=== PATIENT | male | born 1980 | race Two or more races ===

== ENCOUNTER 2017-02-21 08:12 | Inpatient (IN) | payer OTHER ==
[~2017-02-21] VITALS: Ht 170.2 cm; Wt 99.4 kg
[2017-02-21] MEDS ORDERED: SODIUM CHLORIDE 0.9% 1,000 ML IV ONE ×2 (09:09→14:00)
[2017-02-21] MEDS ORDERED: NALBUPHINE HCL 10 MG/1ml INJECTION IV ONE (09:15)
[2017-02-21] MEDS ORDERED: ONDANSETRON HCL 4 MG/2 ML VIAL IV ONE ×2 (09:15→11:15)
[2017-02-21 09:43] LABS: Potassium 4.3 mmol/L (3.5-5.1)
[2017-02-21 10:33] LABS: Basophils # (auto) 0.1 uL; Basophils % (auto) 0.5 % (0.0-2.0); Eosinophils # (auto) 0.4 uL; Eosinophils % (auto) 2.7 % (0.0-7.0); Hematocrit 41.9 % (41.0-53.0); Hemoglobin 14.9 g/dL (13.5-17.5); Lymphocytes # (auto) 3.5 uL; Lymphocytes % (auto) 21.4 % (10.0-50.0); Mean Corpuscular Hemoglobin 31.5 pg (28.0-32.0); Mean Corpuscular Volume 88.3 fL (80.0-100.0); Mean Platelet Volume 11.1 fL (7.4-10.4); Monocytes # (auto) 0.5 uL; Monocytes % (auto) 2.8 % (0.0-12.0); Neutrophils # (auto) 11.8 uL; Neutrophils % (auto) 72.6 % (37.0-80.0); Platelet Count (auto) 315 10^3/uL (140-450); Red Cell Distribution Width 13.3 % (11.6-16.0); White Blood Cell 16.3 10^3/uL (4.4-10.8)
[2017-02-21 10:40] LABS: Mean Corpuscular Hgb Conc. 35.7 g/dL (32.0-36.0)
[2017-02-21 10:49] LABS: Albumin 3.2 g/dL (3.4-5.0); Total Protein 8.5 g/dL (6.4-8.2)
[2017-02-21 10:50] LABS: BUN/Creatinine Ratio 12.2; Bilirubin, Total 1.9 mg/dL (0.2-1.0)
[2017-02-21 11:02] LABS: Calcium 5.1 mg/dL (8.5-10.1)
[2017-02-21] MEDS ORDERED: MORPHINE SULFATE 4 MG/ML SYRG IV ONE (11:15)
[2017-02-21] MEDS ORDERED: IOHEXOL 300 MG/ML 100ML BOTTLE IJ ONE (11:16)
[2017-02-21] MEDS ORDERED: PIPERACILLIN-TAZOB 3.375GM 100 ML IV ONE (11:30)
[2017-02-21 12:48] LABS: Lactic Acid w/Reflex 2.7 mmol/L (0.4-2.0)
[2017-02-21 12:49] LABS: REFLEX LACTIC ACID YES OR NO YES
[2017-02-21] MEDS ORDERED: NITROGLYCERIN 0.4 MG SL TAB SL PRN (14:00)
[2017-02-21] MEDS ORDERED: DEXTROSE (50%) 50ML SYRG IV PRN (14:00)
[2017-02-21] MEDS ORDERED: HYDROmorphone HCL 2 MG/ML VL IV ONE (14:00)
[2017-02-21] MEDS ORDERED: MORPHINE SULF INJ 2 MG/ML SYRINGE 1ML IV PRN (14:00)
[2017-02-21] MEDS ORDERED: CALCIUM GLUC 4.65 MEQ/10ML 4.65 MEQ in SODIUM CHL 0.9% 50 ML IV ONE (14:30)
[2017-02-21] MEDS: PANTOPRAZOLE SODIUM 40 MG/10 ML VIAL IV SCH (14:31)
[2017-02-21 15:31] VITALS: BP 134/79
[2017-02-21 15:34] VITALS: BP 122/72
[2017-02-21] MEDS: ONDANSETRON HCL 4 MG/2 ML VIAL IV PRN ×2 (16:06→21:34)
[2017-02-21] MEDS: HYDROmorphone HCL 2 MG/ML VL IV PRN ×2 (16:16→21:34)
[2017-02-21] MEDS: LEVOFLOXACIN 500MG 100 ML IV SCH (16:36)
[2017-02-21] MEDS: SODIUM CHLORIDE 0.9% 1,000 ML IV SCH ×2 (16:40→21:34)
[2017-02-21] MEDS: InsuLIN REG 1unit/0.01ml Soln (100units/ml) SC SCH ×3 (18:00→23:32)
[2017-02-21] MEDS: ACCU-CHEK COMFORT CURVE STRIP VI SCH ×2 (18:00→23:31)
[2017-02-21] MEDS: metroNIDAZOLE 500MG/100ML 100 ML IV SCH ×2 (18:17→21:34)
[2017-02-21 22:02] VITALS: BP 133/75
[2017-02-22] MEDS: SODIUM CHLORIDE 0.9% 1,000 ML IV SCH ×5 (01:36→21:23)
[2017-02-22] MEDS: HYDROmorphone HCL 2 MG/ML VL IV PRN ×5 (01:37→21:23)
[2017-02-22 05:00] VITALS: BP 127/78
[2017-02-22] MEDS: ONDANSETRON HCL 4 MG/2 ML VIAL IV PRN (05:34)
[2017-02-22 05:52] LABS: Hemoglobin 15.6 g/dL (13.5-17.5); Mean Corpuscular Hemoglobin 31.3 pg (28.0-32.0); Mean Corpuscular Hgb Conc. 34.8 g/dL (32.0-36.0); Mean Corpuscular Volume 90.2 fL (80.0-100.0); Mean Platelet Volume 9.6 fL (7.4-10.4); Platelet Count (auto) 339 10^3/uL (140-450); Red Cell Distribution Width 14.3 % (11.6-16.0); White Blood Cell 22.3 10^3/uL (4.4-10.8)
[2017-02-22] MEDS: InsuLIN REG 1unit/0.01ml Soln (100units/ml) SC SCH ×4 (06:00→23:52)
[2017-02-22 06:05] LABS: Metamyelocytes % 0; Myelocytes % 0; Promyelocytes % 0; Reactive Lymphocytes 0
[2017-02-22] MEDS: metroNIDAZOLE 500MG/100ML 100 ML IV SCH ×3 (06:22→23:33)
[2017-02-22] MEDS: ACCU-CHEK COMFORT CURVE STRIP VI SCH ×4 (06:23→23:52)
[2017-02-22 08:18] LABS: Blood Urea Nitrogen 12 mg/dL (7-18); Cholesterol 403 mg/dL (<200); Total Protein 8.1 g/dL (6.4-8.2)
[2017-02-22 08:26] VITALS: BP 140/88
[2017-02-22 08:52] LABS: Sodium 133 mmol/L (136-145)
[2017-02-22 08:53] LABS: Anion Gap 15 (5-15); BUN/Creatinine Ratio 13.5; Carbon Dioxide 20 mmol/L (21-32); Chloride 98 mmol/L (98-107); GFR African American 124 mL/min; GFR Non-African American 103 mL/min; Glucose 330 mg/dL (74-106)
[2017-02-22 08:54] LABS: Alkaline Phosphatase 59 U/L (45-117); Calcium 6.6 mg/dL (8.5-10.1); Triglycerides 637 mg/dL (<150)
[2017-02-22 08:55] LABS: Amylase 308 U/L (25-115); HDL Cholesterol 31 mg/dL (40-59)
[2017-02-22 08:59] LABS: Potassium 6.1 mmol/L (3.5-5.1)
[2017-02-22] MEDS: PANTOPRAZOLE SODIUM 40 MG/10 ML VIAL IV SCH (09:07)
[2017-02-22] MEDS: LEVOFLOXACIN 500MG 100 ML IV SCH (09:07)
[2017-02-22] MEDS ORDERED: CALCIUM GLUC 4.65 MEQ/10ML 4.65 MEQ in SODIUM CHL 0.9% 50 ML IV ONE (10:30)
[2017-02-22] MEDS ORDERED: PROMETHAZINE HCL 25 MG/ML 1ML IV PRN (10:30)
[2017-02-22 11:34] LABS: Platelet Estimate Adequate
[2017-02-22 11:54] LABS: Aspartate Aminotransferase 93 U/L (15-37)
[2017-02-22 12:03] VITALS: BP 139/89
[2017-02-22] MEDS: PROCHLORPERAZINE EDISYLATE 5 MG/ML 2ML VIAL IV PRN (14:04)
[2017-02-22 14:32] LABS: Urine RBC None Seen /hpf (0 - 3)
[2017-02-22 14:44] LABS: Urine Bilirubin Negative (Negative); Urine Blood TRACE /uL (Negative); Urine Color Yellow (Yellow); Urine Nitrite Negative (Negative); Urine Squamous Epithelial Cell FEW /hpf (<5); Urine Urobilinogen Normal (Negative); Urine pH 5.5 (5.0-8.0)
[2017-02-22 14:47] LABS: Urine Glucose 4+ mg/dL (Normal); Urine Ketone 2+ (Negative)
[2017-02-22 16:04] VITALS: BP 147/79
[2017-02-22] MEDS ORDERED: HYDROmorphone HCL 2 MG/ML VL IV ONE (17:00)
[2017-02-22] MEDS ORDERED: SODIUM CHLORIDE 0.9% 1,000 ML IV ONE (17:00)
[2017-02-22] MEDS: INSULIN DETEMIR(LEVEMIR) 1unit/0.01ml Soln (100units/ml) SC SCH (21:39)
[2017-02-22 22:00] VITALS: BP 146/82
[2017-02-23] MEDS: HYDROmorphone HCL 2 MG/ML VL IV PRN ×6 (01:35→21:44)
[2017-02-23] MEDS ORDERED: METF-312 PO (01:47)
[2017-02-23] MEDS ORDERED: CANA100T OR (01:51)
[2017-02-23] MEDS ORDERED: LISI40TA PO (01:51)
[2017-02-23] MEDS ORDERED: VERA180C2 PO (01:51)
[2017-02-23] MEDS ORDERED: IBUP800T24 PO (01:52)
[2017-02-23] MEDS: SODIUM CHLORIDE 0.9% 1,000 ML IV SCH ×5 (04:48→20:17)
[2017-02-23 05:00] VITALS: BP 139/90
[2017-02-23 05:13] LABS: DEFINITIVE VIEW TRANSMISSION; Hematocrit 40.6 % (41.0-53.0); Hemoglobin 13.9 g/dL (13.5-17.5); Mean Corpuscular Hgb Conc. 34.2 g/dL (32.0-36.0); Mean Corpuscular Volume 90.6 fL (80.0-100.0); Mean Platelet Volume 9.4 fL (7.4-10.4); Platelet Count (auto) 271 10^3/uL (140-450); Red Cell Distribution Width 14.4 % (11.6-16.0); SUSPECT VIEW TRANSMISSION; White Blood Cell 17.8 10^3/uL (4.4-10.8)
[2017-02-23 05:14] LABS: Metamyelocytes % 0; Myelocytes % 0; Promyelocytes % 0; Reactive Lymphocytes 0
[2017-02-23 05:34] LABS: Albumin 2.5 g/dL (3.4-5.0); BUN/Creatinine Ratio 17.1; Bilirubin, Total 1.1 mg/dL (0.2-1.0); Calcium 7.5 mg/dL (8.5-10.1); Potassium 4.6 mmol/L (3.5-5.1); Total Protein 7.2 g/dL (6.4-8.2)
[2017-02-23] MEDS: InsuLIN REG 1unit/0.01ml Soln (100units/ml) SC SCH ×4 (05:46→23:37)
[2017-02-23] MEDS: metroNIDAZOLE 500MG/100ML 100 ML IV SCH ×3 (05:46→22:31)
[2017-02-23] MEDS: ACCU-CHEK COMFORT CURVE STRIP VI SCH ×4 (05:47→23:37)
[2017-02-23 07:42] LABS: Platelet Estimate Adequate
[2017-02-23 09:00] VITALS: BP 117/77
[2017-02-23] MEDS: LEVOFLOXACIN 500MG 100 ML IV SCH (09:31)
[2017-02-23] MEDS: PANTOPRAZOLE SODIUM 40 MG/10 ML VIAL IV SCH (09:31)
[2017-02-23] MEDS: INSULIN DETEMIR(LEVEMIR) 1unit/0.01ml Soln (100units/ml) SC SCH ×2 (09:37→21:45)
[2017-02-23] MEDS: PROCHLORPERAZINE EDISYLATE 5 MG/ML 2ML VIAL IV PRN ×2 (09:43→18:20)
[2017-02-23] MEDS ORDERED: SODIUM CHLORIDE 0.9% 500 ML IV ONE (10:15)
[2017-02-23 13:00] VITALS: BP 146/86
[2017-02-23 17:00] VITALS: BP_SYST 148; BP_SYST 94; BP_DIAS 57; BP_DIAS 91
[2017-02-23 22:00] VITALS: BP 163/91
[2017-02-24] MEDS: HYDROmorphone HCL 2 MG/ML VL IV PRN ×5 (04:20→23:54)
[2017-02-24] MEDS: SODIUM CHLORIDE 0.9% 1,000 ML IV SCH ×5 (04:21→23:36)
[2017-02-24] MEDS: ACETAMINOPHEN 325 MG TAB PO PRN ×2 (04:28→23:55)
[2017-02-24 05:30] VITALS: BP 160/94
[2017-02-24 05:42] LABS: Basophils # (auto) 0 uL; Eosinophils # (auto) 0.1 uL; Eosinophils % (auto) 0.7 % (0.0-7.0); Hematocrit 35.4 % (41.0-53.0); Hemoglobin 11.8 g/dL (13.5-17.5); Lymphocytes % (auto) 13.9 % (10.0-50.0); Mean Corpuscular Hemoglobin 30.4 pg (28.0-32.0); Mean Corpuscular Hgb Conc. 33.4 g/dL (32.0-36.0); Mean Corpuscular Volume 90.8 fL (80.0-100.0); Mean Platelet Volume 8.9 fL (7.4-10.4); Monocytes # (auto) 1.2 uL; Monocytes % (auto) 8.4 % (0.0-12.0); Platelet Count (auto) 235 10^3/uL (140-450); Red Cell Distribution Width 14.3 % (11.6-16.0); White Blood Cell 14.3 10^3/uL (4.4-10.8)
[2017-02-24] MEDS: InsuLIN REG 1unit/0.01ml Soln (100units/ml) SC SCH ×3 (05:56→18:12)
[2017-02-24] MEDS: ACCU-CHEK COMFORT CURVE STRIP VI SCH ×3 (05:56→18:11)
[2017-02-24] MEDS: metroNIDAZOLE 500MG/100ML 100 ML IV SCH ×3 (05:56→23:36)
[2017-02-24 06:05] LABS: Albumin 2.2 g/dL (3.4-5.0); BUN/Creatinine Ratio 22.4; Bilirubin, Total 0.8 mg/dL (0.2-1.0); Calcium 7.7 mg/dL (8.5-10.1); Potassium 3.4 mmol/L (3.5-5.1); Total Protein 6.5 g/dL (6.4-8.2)
[2017-02-24 09:00] VITALS: BP 128/84
[2017-02-24] MEDS: cefTRIAXone 1GM/50ML D5W 50 ML IV SCH (10:37)
[2017-02-24] MEDS: PANTOPRAZOLE SODIUM 40 MG/10 ML VIAL IV SCH (10:38)
[2017-02-24] MEDS: INSULIN DETEMIR(LEVEMIR) 1unit/0.01ml Soln (100units/ml) SC SCH ×2 (10:55→22:09)
[2017-02-24 13:24] VITALS: BP 153/94
[2017-02-24 17:06] VITALS: BP 163/101
[2017-02-24 21:38] VITALS: BP 141/81
[2017-02-25] MEDS: ACCU-CHEK COMFORT CURVE STRIP VI SCH ×4 (00:15→17:26)
[2017-02-25] MEDS: InsuLIN REG 1unit/0.01ml Soln (100units/ml) SC SCH ×4 (00:16→17:27)
[2017-02-25] MEDS: HYDROmorphone HCL 2 MG/ML VL IV PRN ×5 (04:28→20:02)
[2017-02-25 04:37] VITALS: BP 150/86
[2017-02-25 05:20] LABS: Basophils # (auto) 0 uL; Basophils % (auto) 0.2 % (0.0-2.0); Eosinophils # (auto) 0.2 uL; Eosinophils % (auto) 1.4 % (0.0-7.0); Hematocrit 33.3 % (41.0-53.0); Hemoglobin 11.1 g/dL (13.5-17.5); Lymphocytes # (auto) 2.5 uL; Lymphocytes % (auto) 16.7 % (10.0-50.0); Mean Corpuscular Hemoglobin 30.6 pg (28.0-32.0); Mean Corpuscular Hgb Conc. 33.4 g/dL (32.0-36.0); Mean Corpuscular Volume 91.7 fL (80.0-100.0); Mean Platelet Volume 8.5 fL (7.4-10.4); Monocytes # (auto) 0.9 uL; Monocytes % (auto) 6.1 % (0.0-12.0); Neutrophils # (auto) 11.3 uL; Neutrophils % (auto) 75.6 % (37.0-80.0); Platelet Count (auto) 275 10^3/uL (140-450); Red Cell Distribution Width 14.5 % (11.6-16.0); White Blood Cell 14.9 10^3/uL (4.4-10.8)
[2017-02-25] MEDS: SODIUM CHLORIDE 0.9% 1,000 ML IV SCH ×2 (05:40→08:22)
[2017-02-25] MEDS: metroNIDAZOLE 500MG/100ML 100 ML IV SCH ×3 (05:40→23:00)
[2017-02-25 05:47] LABS: BUN/Creatinine Ratio 15.9; Calcium 7.6 mg/dL (8.5-10.1)
[2017-02-25 06:05] LABS: Potassium 2.9 mmol/L (3.5-5.1)
[2017-02-25 07:33] VITALS: BP 149/95
[2017-02-25] MEDS: cefTRIAXone 1GM/50ML D5W 50 ML IV SCH ×2 (09:45→10:15)
[2017-02-25] MEDS ORDERED: POTASSIUM CHL 20MEQ/100ML 100 ML IV ONE ×2 (09:45→11:45)
[2017-02-25] MEDS: PANTOPRAZOLE SODIUM 40 MG/10 ML VIAL IV SCH (10:15)
[2017-02-25] MEDS: INSULIN DETEMIR(LEVEMIR) 1unit/0.01ml Soln (100units/ml) SC SCH ×2 (10:55→22:39)
[2017-02-25] MEDS: SOD CHL 0.9%/ KCL 40MEQ 1,000 ML IV SCH (10:56)
[2017-02-25] MEDS: ACETAMINOPHEN 325 MG TAB PO PRN ×2 (11:04→12:31)
[2017-02-25 13:00] VITALS: BP 129/65
[2017-02-25] MEDS ORDERED: POTASSIUM CHL 20 Meq TABLET PO ONE (13:00)
[2017-02-25 16:48] VITALS: BP 158/93
[2017-02-25 21:45] VITALS: BP 152/90
[2017-02-26] MEDS: SOD CHL 0.9%/ KCL 40MEQ 1,000 ML IV SCH (01:23)
[2017-02-26] MEDS ORDERED: LORazepam 0.5 MG TAB PO PRN (03:00)
[2017-02-26] MEDS: HYDROmorphone HCL 2 MG/ML VL IV PRN ×4 (03:15→20:06)
[2017-02-26 05:00] VITALS: BP 149/89
[2017-02-26 05:48] LABS: Basophils # (auto) 0.1 uL; Basophils % (auto) 0.3 % (0.0-2.0); Eosinophils # (auto) 0.5 uL; Eosinophils % (auto) 3.5 % (0.0-7.0); Hematocrit 33.5 % (41.0-53.0); Hemoglobin 11.2 g/dL (13.5-17.5); Lymphocytes # (auto) 2.3 uL; Lymphocytes % (auto) 15.1 % (10.0-50.0); Mean Corpuscular Hemoglobin 30.3 pg (28.0-32.0); Mean Corpuscular Hgb Conc. 33.5 g/dL (32.0-36.0); Mean Corpuscular Volume 90.5 fL (80.0-100.0); Mean Platelet Volume 8.4 fL (7.4-10.4); Monocytes # (auto) 1.1 uL; Monocytes % (auto) 7.4 % (0.0-12.0); Neutrophils # (auto) 11.4 uL; Neutrophils % (auto) 73.7 % (37.0-80.0); Platelet Count (auto) 297 10^3/uL (140-450); Red Cell Distribution Width 14.6 % (11.6-16.0); White Blood Cell 15.5 10^3/uL (4.4-10.8)
[2017-02-26] MEDS: metroNIDAZOLE 500MG/100ML 100 ML IV SCH ×3 (05:49→21:40)
[2017-02-26] MEDS: ACCU-CHEK COMFORT CURVE STRIP VI SCH ×5 (06:00→23:28)
[2017-02-26] MEDS: InsuLIN REG 1unit/0.01ml Soln (100units/ml) SC SCH ×5 (06:00→23:34)
[2017-02-26 06:29] LABS: Albumin 2.1 g/dL (3.4-5.0); BUN/Creatinine Ratio 16.3; Bilirubin, Total 0.5 mg/dL (0.2-1.0); Calcium 7.8 mg/dL (8.5-10.1); Total Protein 6.1 g/dL (6.4-8.2)
[2017-02-26 06:35] LABS: Potassium 2.8 mmol/L (3.5-5.1)
[2017-02-26] MEDS: HYDROcodone-ACET 10/325MG TAB PO PRN ×3 (06:54→22:36)
[2017-02-26 09:00] VITALS: BP 147/104
[2017-02-26] MEDS ORDERED: POTASSIUM CHLORIDE 40 MEQ, LIDOCAINE 1% (LOCAL ANESTH.) 4 ML in SODIUM CHL 0.9% 250 ML IV ONE (09:00)
[2017-02-26] MEDS: INSULIN DETEMIR(LEVEMIR) 1unit/0.01ml Soln (100units/ml) SC SCH ×2 (09:26→21:39)
[2017-02-26] MEDS: PANTOPRAZOLE SODIUM 40 MG/10 ML VIAL IV SCH (09:27)
[2017-02-26 13:00] VITALS: BP 142/94
[2017-02-26] MEDS ORDERED: diphenhdrAMINE HCL 25 MG CAP PO ONE (14:30)
[2017-02-26] MEDS ORDERED: PPN PER PHARMACY 0 ML IV SCH (15:30)
[2017-02-26 15:59] LABS: Magnesium 2.2 mg/dL (1.6-2.6)
[2017-02-26 17:00] VITALS: BP 158/98
[2017-02-26] MEDS ORDERED: DEXTROSE (50%) 50ML SYRG IV SCH (18:00)
[2017-02-26] MEDS ORDERED: POTASSIUM PHOSPHATE 44 MEQ in NS 0.9% 250 ML IV ONE (18:30)
[2017-02-26 20:00] VITALS: BP 156/101
[2017-02-26] MEDS: AMINO ACID INFUSION IN D10W 1,000 ML IV NR (20:05)
[2017-02-26 21:30] VITALS: BP 156/101
[2017-02-27 00:40] VITALS: BP 143/103
[2017-02-27] MEDS: HYDROmorphone HCL 2 MG/ML VL IV PRN ×5 (00:47→20:18)
[2017-02-27] MEDS: SOD CHL 0.9%/ KCL 40MEQ 1,000 ML IV SCH ×2 (00:48→21:13)
[2017-02-27 05:00] VITALS: BP 146/80
[2017-02-27] MEDS: metroNIDAZOLE 500MG/100ML 100 ML IV SCH ×3 (05:42→21:13)
[2017-02-27] MEDS: InsuLIN REG 1unit/0.01ml Soln (100units/ml) SC SCH ×4 (06:11→23:39)
[2017-02-27] MEDS: ACCU-CHEK COMFORT CURVE STRIP VI SCH ×4 (06:11→23:38)
[2017-02-27 06:29] LABS: Basophils # (auto) 0.1 uL; Basophils % (auto) 0.6 % (0.0-2.0); Eosinophils # (auto) 0.6 uL; Eosinophils % (auto) 3.6 % (0.0-7.0); Hematocrit 34.5 % (41.0-53.0); Hemoglobin 11.3 g/dL (13.5-17.5); Lymphocytes # (auto) 1.9 uL; Lymphocytes % (auto) 12.5 % (10.0-50.0); Mean Corpuscular Hgb Conc. 32.7 g/dL (32.0-36.0); Mean Corpuscular Volume 91.7 fL (80.0-100.0); Mean Platelet Volume 8.5 fL (7.4-10.4); Monocytes # (auto) 1.4 uL; Neutrophils # (auto) 11.6 uL; Neutrophils % (auto) 74.3 % (37.0-80.0); Platelet Count (auto) 340 10^3/uL (140-450); Red Cell Distribution Width 14.6 % (11.6-16.0); White Blood Cell 15.6 10^3/uL (4.4-10.8)
[2017-02-27 07:10] LABS: BUN/Creatinine Ratio 14.3; Bilirubin, Total 0.6 mg/dL (0.2-1.0); Calcium 7.6 mg/dL (8.5-10.1); Magnesium 1.8 mg/dL (1.6-2.6); Phosphorus 2.5 mg/dL (2.5-4.90); Potassium 3.3 mmol/L (3.5-5.1)
[2017-02-27 09:00] VITALS: BP 152/99
[2017-02-27] MEDS ORDERED: POTASSIUM CHL 20 Meq TABLET PO ONE (10:15)
[2017-02-27] MEDS ORDERED: IOHEXOL 300 MG/ML 100ML BOTTLE IJ ONE (10:52)
[2017-02-27] MEDS: PANTOPRAZOLE SODIUM 40 MG/10 ML VIAL IV SCH (11:03)
[2017-02-27] MEDS: cefTRIAXone 1GM/50ML D5W 50 ML IV SCH (11:03)
[2017-02-27] MEDS: POTASSIUM CHL 20MEQ/100ML 100 ML IV SCH ×2 (11:04→16:21)
[2017-02-27 13:00] VITALS: BP 150/105
[2017-02-27] MEDS: INSULIN DETEMIR(LEVEMIR) 1unit/0.01ml Soln (100units/ml) SC SCH ×2 (15:50→21:25)
[2017-02-27 17:00] VITALS: BP 139/82
[2017-02-27] MEDS ORDERED: CLINIMIX PER PHARMACY IV NR ×9 (20:00)
[2017-02-27] MEDS: AMINO ACID INFUSION IN D10W 1,000 ML IV NR (20:08)
[2017-02-27 22:00] VITALS: BP 145/92
[2017-02-28] MEDS: HYDROmorphone HCL 2 MG/ML VL IV PRN ×3 (00:32→09:37)
[2017-02-28 05:00] VITALS: BP 155/97
[2017-02-28] MEDS: metroNIDAZOLE 500MG/100ML 100 ML IV SCH ×3 (05:30→22:02)
[2017-02-28] MEDS: ACCU-CHEK COMFORT CURVE STRIP VI SCH ×3 (05:31→18:13)
[2017-02-28] MEDS: InsuLIN REG 1unit/0.01ml Soln (100units/ml) SC SCH ×3 (06:17→18:00)
[2017-02-28 06:19] LABS: Basophils # (auto) 0 uL; Basophils % (auto) 0.1 % (0.0-2.0); DEFINITIVE VIEW TRANSMISSION; Eosinophils # (auto) 0.6 uL; Eosinophils % (auto) 3.5 % (0.0-7.0); Hematocrit 34.8 % (41.0-53.0); Hemoglobin 11.7 g/dL (13.5-17.5); Lymphocytes # (auto) 2.2 uL; Lymphocytes % (auto) 13.6 % (10.0-50.0); Mean Corpuscular Hemoglobin 30.2 pg (28.0-32.0); Mean Corpuscular Hgb Conc. 33.6 g/dL (32.0-36.0); Mean Platelet Volume 8.2 fL (7.4-10.4); Monocytes # (auto) 1.8 uL; Monocytes % (auto) 11.2 % (0.0-12.0); Neutrophils # (auto) 11.5 uL; Neutrophils % (auto) 71.6 % (37.0-80.0); Platelet Count (auto) 378 10^3/uL (140-450); Red Cell Distribution Width 14.4 % (11.6-16.0); White Blood Cell 16.1 10^3/uL (4.4-10.8)
[2017-02-28 07:01] LABS: Albumin 2.2 g/dL (3.4-5.0); BUN/Creatinine Ratio 12.2; Bilirubin, Total 0.6 mg/dL (0.2-1.0); Calcium 8.1 mg/dL (8.5-10.1); Magnesium 2.2 mg/dL (1.6-2.6); Phosphorus 3.2 mg/dL (2.5-4.90); Potassium 3.4 mmol/L (3.5-5.1); Total Protein 6.3 g/dL (6.4-8.2)
[2017-02-28] MEDS: cefTRIAXone 1GM/50ML D5W 50 ML IV SCH (08:55)
[2017-02-28 09:00] VITALS: BP 152/95
[2017-02-28] MEDS: PANTOPRAZOLE SODIUM 40 MG/10 ML VIAL IV SCH (09:06)
[2017-02-28] MEDS: INSULIN DETEMIR(LEVEMIR) 1unit/0.01ml Soln (100units/ml) SC SCH ×2 (09:09→22:14)
[2017-02-28] MEDS ORDERED: POTASSIUM CHL 20MEQ/100ML 100 ML IV ONE (11:00)
[2017-02-28] MEDS ORDERED: TPN PER PHARMACY 0 ML IV SCH (11:15)
[2017-02-28] MEDS ORDERED: POTASSIUM CHL 20 Meq TABLET PO ONE (11:15)
[2017-02-28 13:00] VITALS: BP 164/99
[2017-02-28] MEDS: MORPHINE SULF INJ 2 MG/ML SYRINGE 1ML IV PRN ×2 (14:40→20:44)
[2017-02-28 16:31] VITALS: BP_DIAS 149
[2017-02-28] MEDS: ENALAPRILAT 1.25 MG/ML-1ML VIAL IV PRN (16:39)
[2017-02-28] MEDS ORDERED: LIDOCAINE 1% HCL (LOCAL ANESTH.) INJ 20ML MDV ID ONE (17:15)
[2017-02-28] MEDS: SOD CHL 0.9%/ KCL 40MEQ 1,000 ML IV SCH (18:08)
[2017-02-28] MEDS ORDERED: CLINIMIX PER PHARMACY IV NR ×9 (20:00)
[2017-02-28 21:54] VITALS: BP 164/107
[2017-02-28] MEDS: SODIUM CHLOR 0.9% PF (SALINE LOCK) 10ML VIAL IV SCH (22:02)
[2017-02-28] MEDS: TEMAZEPAM 15 MG CAP PO PRN (22:04)
[2017-02-28 22:40] VITALS: BP 151/81
[2017-03-01] MEDS: MORPHINE SULF INJ 2 MG/ML SYRINGE 1ML IV PRN ×6 (00:49→22:06)
[2017-03-01] MEDS: ENALAPRILAT 1.25 MG/ML-1ML VIAL IV PRN (04:43)
[2017-03-01 05:15] VITALS: BP 171/103
[2017-03-01] MEDS: ACCU-CHEK COMFORT CURVE STRIP VI SCH ×5 (05:40→23:21)
[2017-03-01] MEDS: InsuLIN REG 1unit/0.01ml Soln (100units/ml) SC SCH ×5 (05:40→23:22)
[2017-03-01] MEDS: metroNIDAZOLE 500MG/100ML 100 ML IV SCH ×3 (05:43→22:02)
[2017-03-01 06:40] LABS: DEFINITIVE VIEW TRANSMISSION; Hematocrit 36.4 % (41.0-53.0); Hemoglobin 12.1 g/dL (13.5-17.5); Mean Corpuscular Hgb Conc. 33.1 g/dL (32.0-36.0); Mean Corpuscular Volume 90.6 fL (80.0-100.0); Mean Platelet Volume 8.7 fL (7.4-10.4); Platelet Count (auto) 347 10^3/uL (140-450); Red Cell Distribution Width 14.5 % (11.6-16.0); SUSPECT VIEW TRANSMISSION; White Blood Cell 15.6 10^3/uL (4.4-10.8)
[2017-03-01 06:51] LABS: Metamyelocytes % 0; Myelocytes % 0; Promyelocytes % 0; Reactive Lymphocytes 0
[2017-03-01 07:04] LABS: Albumin 2.3 g/dL (3.4-5.0); BUN/Creatinine Ratio 15.4; Bilirubin, Total 0.5 mg/dL (0.2-1.0); Calcium 8.3 mg/dL (8.5-10.1); Magnesium 2.4 mg/dL (1.6-2.6); Phosphorus 3.4 mg/dL (2.5-4.90); Total Protein 6.6 g/dL (6.4-8.2)
[2017-03-01 08:55] VITALS: BP 137/84
[2017-03-01] MEDS: SODIUM CHLOR 0.9% PF (SALINE LOCK) 10ML VIAL IV SCH ×2 (10:00→22:02)
[2017-03-01] MEDS: LISINOPRIL 10 MG TAB PO SCH (10:00)
[2017-03-01] MEDS: cefTRIAXone 1GM/50ML D5W 50 ML IV SCH (12:02)
[2017-03-01] MEDS: PANTOPRAZOLE SODIUM 40 MG/10 ML VIAL IV SCH (12:02)
[2017-03-01 12:09] LABS: Platelet Estimate Adequate; RBC Morphology Normal
[2017-03-01] MEDS: INSULIN DETEMIR(LEVEMIR) 1unit/0.01ml Soln (100units/ml) SC SCH ×2 (12:22→22:03)
[2017-03-01 13:00] VITALS: BP 139/90
[2017-03-01] MEDS: SOD CHL 0.9%/ KCL 40MEQ 1,000 ML IV SCH (13:30)
[2017-03-01 16:47] VITALS: BP 137/87
[2017-03-01] MEDS ORDERED: TPN PER PHARMACY IV NR ×12 (20:00)
[2017-03-01 22:00] VITALS: BP 139/98
[2017-03-01] MEDS: TEMAZEPAM 15 MG CAP PO PRN (22:06)
[2017-03-02] MEDS: MORPHINE SULF INJ 2 MG/ML SYRINGE 1ML IV PRN ×4 (03:08→20:50)
[2017-03-02 05:00] VITALS: BP 126/80
[2017-03-02] MEDS: metroNIDAZOLE 500MG/100ML 100 ML IV SCH ×3 (05:20→21:54)
[2017-03-02] MEDS: ACCU-CHEK COMFORT CURVE STRIP VI SCH ×4 (05:20→23:16)
[2017-03-02] MEDS: InsuLIN REG 1unit/0.01ml Soln (100units/ml) SC SCH ×4 (05:20→23:16)
[2017-03-02 07:30] LABS: Albumin 2.1 g/dL (3.4-5.0); BUN/Creatinine Ratio 19.1; Bilirubin, Total 0.5 mg/dL (0.2-1.0); Calcium 7.7 mg/dL (8.5-10.1); Magnesium 2.2 mg/dL (1.6-2.6); Phosphorus 3.2 mg/dL (2.5-4.90); Potassium 4.7 mmol/L (3.5-5.1); Total Protein 6.2 g/dL (6.4-8.2)
[2017-03-02] MEDS: cefTRIAXone 1GM/50ML D5W 50 ML IV SCH (09:55)
[2017-03-02] MEDS: PANTOPRAZOLE SODIUM 40 MG/10 ML VIAL IV SCH (09:56)
[2017-03-02] MEDS: SOD CHL 0.9%/ KCL 40MEQ 1,000 ML IV SCH (09:56)
[2017-03-02] MEDS: LISINOPRIL 10 MG TAB PO SCH (09:57)
[2017-03-02] MEDS: SODIUM CHLOR 0.9% PF (SALINE LOCK) 10ML VIAL IV SCH ×2 (09:57→21:54)
[2017-03-02] MEDS: INSULIN DETEMIR(LEVEMIR) 1unit/0.01ml Soln (100units/ml) SC SCH ×2 (10:00→21:55)
[2017-03-02 10:08] LABS: Basophils # (auto) 0.2 uL; Eosinophils # (auto) 0.4 uL; Eosinophils % (auto) 2.4 % (0.0-7.0); Lymphocytes % (auto) 18.8 % (10.0-50.0); Mean Corpuscular Hgb Conc. 33.4 g/dL (32.0-36.0); Mean Platelet Volume 8.2 fL (7.4-10.4); Monocytes % (auto) 6.6 % (0.0-12.0); Neutrophils # (auto) 11.2 uL; Neutrophils % (auto) 71.2 % (37.0-80.0); Platelet Count (auto) 386 10^3/uL (140-450); SUSPECT VIEW TRANSMISSION; White Blood Cell 15.8 10^3/uL (4.4-10.8)
[2017-03-02] MEDS ORDERED: KETOROLAC TROMETH 30 MG/ML 1ML VIAL IV ONE (10:30)
[2017-03-02 10:54] VITALS: BP 146/77
[2017-03-02] MEDS ORDERED: CATHFLO ACTIVASE (ALTEPLASE) 2 MG VIAL IV ONE (15:15)
[2017-03-02 15:20] VITALS: BP 136/60
[2017-03-02] MEDS: KETOROLAC TROMETH 30 MG/ML 1ML VIAL IV PRN ×2 (17:12→23:16)
[2017-03-02 17:40] VITALS: BP 131/62
[2017-03-02] MEDS ORDERED: TPN PER PHARMACY IV NR ×12 (20:00)
[2017-03-02 21:35] VITALS: BP 130/86
[2017-03-03] MEDS: SOD CHL 0.9%/ KCL 40MEQ 1,000 ML IV SCH (05:21)
[2017-03-03] MEDS: ACCU-CHEK COMFORT CURVE STRIP VI SCH ×3 (05:22→18:01)
[2017-03-03] MEDS: InsuLIN REG 1unit/0.01ml Soln (100units/ml) SC SCH ×3 (05:23→18:00)
[2017-03-03 05:29] VITALS: BP 122/70
[2017-03-03] MEDS: metroNIDAZOLE 500MG/100ML 100 ML IV SCH ×3 (05:37→21:26)
[2017-03-03] MEDS: KETOROLAC TROMETH 30 MG/ML 1ML VIAL IV PRN ×3 (05:37→20:05)
[2017-03-03 07:39] LABS: Basophils # (auto) 0 uL; Basophils % (auto) 0.3 % (0.0-2.0); Eosinophils # (auto) 0.4 uL; Eosinophils % (auto) 2.7 % (0.0-7.0); Hematocrit 35.1 % (41.0-53.0); Hemoglobin 11.7 g/dL (13.5-17.5); Lymphocytes # (auto) 2.4 uL; Lymphocytes % (auto) 17.7 % (10.0-50.0); Mean Corpuscular Hemoglobin 29.8 pg (28.0-32.0); Mean Corpuscular Hgb Conc. 33.4 g/dL (32.0-36.0); Mean Corpuscular Volume 89.1 fL (80.0-100.0); Mean Platelet Volume 8.5 fL (7.4-10.4); Monocytes % (auto) 7.6 % (0.0-12.0); Neutrophils # (auto) 9.6 uL; Neutrophils % (auto) 71.7 % (37.0-80.0); Platelet Count (auto) 409 10^3/uL (140-450); Red Cell Distribution Width 13.8 % (11.6-16.0); White Blood Cell 13.4 10^3/uL (4.4-10.8)
[2017-03-03 07:45] LABS: Albumin 2.2 g/dL (3.4-5.0); Calcium 8.1 mg/dL (8.5-10.1); Magnesium 2.2 mg/dL (1.6-2.6); Potassium 4.2 mmol/L (3.5-5.1)
[2017-03-03 07:48] LABS: BUN/Creatinine Ratio 25.5
[2017-03-03 07:50] LABS: Bilirubin, Total 0.3 mg/dL (0.2-1.0); Phosphorus 3.5 mg/dL (2.5-4.90); Total Protein 6.4 g/dL (6.4-8.2)
[2017-03-03 09:00] VITALS: BP 112/69
[2017-03-03] MEDS: PANTOPRAZOLE SODIUM 40 MG/10 ML VIAL IV SCH (09:53)
[2017-03-03] MEDS: cefTRIAXone 1GM/50ML D5W 50 ML IV SCH (09:53)
[2017-03-03] MEDS: MORPHINE SULF INJ 2 MG/ML SYRINGE 1ML IV PRN ×3 (09:53→22:16)
[2017-03-03] MEDS: LISINOPRIL 10 MG TAB PO SCH (09:53)
[2017-03-03] MEDS: SODIUM CHLOR 0.9% PF (SALINE LOCK) 10ML VIAL IV SCH ×2 (09:53→21:26)
[2017-03-03] MEDS: INSULIN DETEMIR(LEVEMIR) 1unit/0.01ml Soln (100units/ml) SC SCH ×2 (09:55→21:26)
[2017-03-03 13:00] VITALS: BP 124/78
[2017-03-03 17:00] VITALS: BP 124/76
[2017-03-03] MEDS ORDERED: TPN PER PHARMACY IV NR ×12 (20:00)
[2017-03-03] MEDS: TEMAZEPAM 15 MG CAP PO PRN (21:41)
[2017-03-03 21:52] VITALS: BP 116/67
[2017-03-04 04:44] VITALS: BP 99/56
[2017-03-04] MEDS: ACCU-CHEK COMFORT CURVE STRIP VI SCH ×5 (05:45→23:46)
[2017-03-04] MEDS: InsuLIN REG 1unit/0.01ml Soln (100units/ml) SC SCH ×5 (05:45→23:46)
[2017-03-04] MEDS: metroNIDAZOLE 500MG/100ML 100 ML IV SCH ×3 (05:47→21:49)
[2017-03-04] MEDS: KETOROLAC TROMETH 30 MG/ML 1ML VIAL IV PRN ×2 (06:20→14:26)
[2017-03-04 08:33] LABS: Basophils # (auto) 0 uL; Basophils % (auto) 0.2 % (0.0-2.0); Eosinophils # (auto) 0.2 uL; Eosinophils % (auto) 2.3 % (0.0-7.0); Hematocrit 33.5 % (41.0-53.0); Hemoglobin 10.8 g/dL (13.5-17.5); Lymphocytes # (auto) 2.3 uL; Lymphocytes % (auto) 21.6 % (10.0-50.0); Mean Corpuscular Hemoglobin 32.2 pg (28.0-32.0); Mean Corpuscular Hgb Conc. 32.3 g/dL (32.0-36.0); Mean Corpuscular Volume 99.6 fL (80.0-100.0); Mean Platelet Volume 8.9 fL (7.4-10.4); Monocytes # (auto) 0.7 uL; Monocytes % (auto) 6.3 % (0.0-12.0); Neutrophils # (auto) 7.6 uL; Neutrophils % (auto) 69.6 % (37.0-80.0); Platelet Count (auto) 387 10^3/uL (140-450); Red Cell Distribution Width 15.3 % (11.6-16.0); White Blood Cell 10.9 10^3/uL (4.4-10.8)
[2017-03-04] MEDS: cefTRIAXone 1GM/50ML D5W 50 ML IV SCH (09:32)
[2017-03-04] MEDS: MORPHINE SULF INJ 2 MG/ML SYRINGE 1ML IV PRN ×3 (09:32→22:02)
[2017-03-04] MEDS: PANTOPRAZOLE SODIUM 40 MG/10 ML VIAL IV SCH (09:32)
[2017-03-04] MEDS: LISINOPRIL 10 MG TAB PO SCH (09:33)
[2017-03-04] MEDS: SODIUM CHLOR 0.9% PF (SALINE LOCK) 10ML VIAL IV SCH ×2 (09:33→21:49)
[2017-03-04] MEDS: INSULIN DETEMIR(LEVEMIR) 1unit/0.01ml Soln (100units/ml) SC SCH ×2 (09:37→21:49)
[2017-03-04 10:41] LABS: BUN/Creatinine Ratio 26.9; Potassium 4.6 mmol/L (3.5-5.1)
[2017-03-04 10:42] LABS: Albumin 2.4 g/dL (3.4-5.0); Bilirubin, Total 0.3 mg/dL (0.2-1.0); Calcium 8.5 mg/dL (8.5-10.1); Magnesium 2.2 mg/dL (1.6-2.6); Phosphorus 3.5 mg/dL (2.5-4.90)
[2017-03-04 17:00] VITALS: BP 128/85
[2017-03-04] MEDS ORDERED: TPN PER PHARMACY IV NR ×12 (20:00)
[2017-03-04 22:00] VITALS: BP 135/84
[2017-03-05] MEDS: MORPHINE SULF INJ 2 MG/ML SYRINGE 1ML IV PRN ×3 (04:16→18:10)
[2017-03-05] MEDS: KETOROLAC TROMETH 30 MG/ML 1ML VIAL IV PRN ×3 (04:50→21:17)
[2017-03-05 05:00] VITALS: BP 122/76
[2017-03-05] MEDS: metroNIDAZOLE 500MG/100ML 100 ML IV SCH ×3 (05:39→21:47)
[2017-03-05] MEDS: ACCU-CHEK COMFORT CURVE STRIP VI SCH ×3 (05:40→17:41)
[2017-03-05] MEDS: InsuLIN REG 1unit/0.01ml Soln (100units/ml) SC SCH ×3 (05:44→17:41)
[2017-03-05 06:27] LABS: Potassium 4.3 mmol/L (3.5-5.1)
[2017-03-05 06:39] LABS: Albumin 2.4 g/dL (3.4-5.0); Bilirubin, Total 0.3 mg/dL (0.2-1.0); Calcium 8.3 mg/dL (8.5-10.1); Phosphorus 3.6 mg/dL (2.5-4.90); Total Protein 6.9 g/dL (6.4-8.2)
[2017-03-05 09:00] VITALS: BP 115/70
[2017-03-05] MEDS: cefTRIAXone 1GM/50ML D5W 50 ML IV SCH (09:24)
[2017-03-05] MEDS: PANTOPRAZOLE SODIUM 40 MG/10 ML VIAL IV SCH (09:25)
[2017-03-05] MEDS: SODIUM CHLOR 0.9% PF (SALINE LOCK) 10ML VIAL IV SCH ×2 (09:26→21:47)
[2017-03-05] MEDS: LISINOPRIL 5 MG TAB PO SCH (09:26)
[2017-03-05] MEDS: INSULIN DETEMIR(LEVEMIR) 1unit/0.01ml Soln (100units/ml) SC SCH ×2 (09:26→21:54)
[2017-03-05] MEDS ORDERED: LORazepam 0.5 MG TAB PO PRN (12:30)
[2017-03-05] MEDS ORDERED: HYDROcodone-ACET 10/325MG TAB PO PRN (12:30)
[2017-03-05 13:00] VITALS: BP 119/81
[2017-03-05 17:00] VITALS: BP 107/60
[2017-03-05] MEDS ORDERED: TPN PER PHARMACY IV NR ×12 (20:00)
[2017-03-05 22:00] VITALS: BP 125/75
[2017-03-06] MEDS: MORPHINE SULF INJ 2 MG/ML SYRINGE 1ML IV PRN ×2 (02:13→19:58)
[2017-03-06 05:00] VITALS: BP 115/66
[2017-03-06] MEDS: metroNIDAZOLE 500MG/100ML 100 ML IV SCH ×3 (05:31→21:31)
[2017-03-06] MEDS: ACCU-CHEK COMFORT CURVE STRIP VI SCH ×5 (06:00→21:32)
[2017-03-06] MEDS: InsuLIN REG 1unit/0.01ml Soln (100units/ml) SC SCH ×5 (06:32→21:33)
[2017-03-06] MEDS: KETOROLAC TROMETH 30 MG/ML 1ML VIAL IV PRN ×2 (07:12→14:29)
[2017-03-06 07:54] LABS: Albumin 2.7 g/dL (3.4-5.0); Bilirubin, Total 0.4 mg/dL (0.2-1.0); Calcium 9.2 mg/dL (8.5-10.1); Magnesium 2.3 mg/dL (1.6-2.6); Phosphorus 3.8 mg/dL (2.5-4.90); Potassium 5.4 mmol/L (3.5-5.1); Total Protein 7.6 g/dL (6.4-8.2)
[2017-03-06 08:00] VITALS: BP 115/71
[2017-03-06 09:00] VITALS: BP 115/71
[2017-03-06] MEDS: PANTOPRAZOLE SODIUM 40 MG/10 ML VIAL IV SCH (09:30)
[2017-03-06] MEDS: SODIUM CHLOR 0.9% PF (SALINE LOCK) 10ML VIAL IV SCH ×2 (09:30→21:31)
[2017-03-06] MEDS: cefTRIAXone 1GM/50ML D5W 50 ML IV SCH (09:30)
[2017-03-06] MEDS: LISINOPRIL 5 MG TAB PO SCH (09:31)
[2017-03-06] MEDS: INSULIN DETEMIR(LEVEMIR) 1unit/0.01ml Soln (100units/ml) SC SCH ×2 (09:31→21:32)
[2017-03-06] MEDS ORDERED: NITROGLYCERIN 0.4 MG SL TAB SL PRN (10:45)
[2017-03-06] MEDS ORDERED: CATHFLO ACTIVASE (ALTEPLASE) 2 MG VIAL IV ONE ×2 (10:45→11:30)
[2017-03-06 13:00] VITALS: BP 133/80
[2017-03-06 13:33] LABS: Basophils # (auto) 0.1 uL; Basophils % (auto) 0.6 % (0.0-2.0); Eosinophils # (auto) 0.3 uL; Eosinophils % (auto) 3.3 % (0.0-7.0); Hematocrit 30.8 % (41.0-53.0); Hemoglobin 10.2 g/dL (13.5-17.5); Lymphocytes # (auto) 1.9 uL; Lymphocytes % (auto) 18.6 % (10.0-50.0); Mean Corpuscular Hemoglobin 30.2 pg (28.0-32.0); Mean Corpuscular Volume 91.4 fL (80.0-100.0); Mean Platelet Volume 8.1 fL (7.4-10.4); Monocytes # (auto) 0.3 uL; Neutrophils # (auto) 7.6 uL; Neutrophils % (auto) 74.5 % (37.0-80.0); Platelet Count (auto) 512 10^3/uL (140-450); Red Cell Distribution Width 13.6 % (11.6-16.0); White Blood Cell 10.1 10^3/uL (4.4-10.8)
[2017-03-06 17:00] VITALS: BP 121/82
[2017-03-06] MEDS ORDERED: DEXTROSE (50%) 50ML SYRG IV PRN (17:00)
[2017-03-06 17:36] LABS: Amylase 133 U/L (25-115)
[2017-03-06] MEDS ORDERED: TPN PER PHARMACY IV NR ×10 (20:00)
[2017-03-06 22:00] VITALS: BP 134/88
[2017-03-07] VITALS (7 sets, daily range): BP systolic 106–143; BP diastolic 60–90
[2017-03-07] MEDS: KETOROLAC TROMETH 30 MG/ML 1ML VIAL IV PRN (03:46)
[2017-03-07] MEDS: metroNIDAZOLE 500MG/100ML 100 ML IV SCH (05:44)
[2017-03-07 05:46] LABS: Basophils # (auto) 0.1 uL; Basophils % (auto) 0.8 % (0.0-2.0); Eosinophils # (auto) 0.7 uL; Eosinophils % (auto) 6.1 % (0.0-7.0); Hematocrit 35.1 % (41.0-53.0); Hemoglobin 11.6 g/dL (13.5-17.5); Lymphocytes # (auto) 2.1 uL; Lymphocytes % (auto) 19.5 % (10.0-50.0); Mean Corpuscular Hemoglobin 29.8 pg (28.0-32.0); Mean Corpuscular Hgb Conc. 32.9 g/dL (32.0-36.0); Mean Corpuscular Volume 90.4 fL (80.0-100.0); Mean Platelet Volume 8.2 fL (7.4-10.4); Monocytes # (auto) 0.5 uL; Neutrophils # (auto) 7.5 uL; Neutrophils % (auto) 68.6 % (37.0-80.0); Platelet Count (auto) 570 10^3/uL (140-450); Red Cell Distribution Width 13.7 % (11.6-16.0); White Blood Cell 10.9 10^3/uL (4.4-10.8)
[2017-03-07] MEDS: MORPHINE SULF INJ 2 MG/ML SYRINGE 1ML IV PRN ×2 (06:01→22:22)
[2017-03-07 06:03] LABS: Albumin 2.4 g/dL (3.4-5.0); BUN/Creatinine Ratio 21.3; Bilirubin, Total 0.4 mg/dL (0.2-1.0); Calcium 8.4 mg/dL (8.5-10.1); Phosphorus 3.2 mg/dL (2.5-4.90); Potassium 4.5 mmol/L (3.5-5.1); Total Protein 6.7 g/dL (6.4-8.2)
[2017-03-07] MEDS: ACCU-CHEK COMFORT CURVE STRIP VI SCH ×4 (06:37→22:22)
[2017-03-07] MEDS: InsuLIN REG 1unit/0.01ml Soln (100units/ml) SC SCH ×4 (06:38→22:23)
[2017-03-07] MEDS: cefTRIAXone 1GM/50ML D5W 50 ML IV SCH (09:35)
[2017-03-07] MEDS: SODIUM CHLOR 0.9% PF (SALINE LOCK) 10ML VIAL IV SCH ×2 (09:35→22:22)
[2017-03-07] MEDS: PANTOPRAZOLE 40 MG TAB PO SCH (09:36)
[2017-03-07] MEDS: INSULIN DETEMIR(LEVEMIR) 1unit/0.01ml Soln (100units/ml) SC SCH ×2 (09:53→22:33)
[2017-03-07] MEDS ORDERED: PROCHLORPERAZINE EDISYLATE 5 MG/ML 2ML VIAL IV PRN (10:45)
[2017-03-07] MEDS ORDERED: ACETAMINOPHEN 325 MG TAB PO PRN (10:45)
[2017-03-08] MEDS: MORPHINE SULF INJ 2 MG/ML SYRINGE 1ML IV PRN (03:38)
[2017-03-08] MEDS: ACCU-CHEK COMFORT CURVE STRIP VI SCH ×2 (05:06→11:30)
[2017-03-08 05:30] VITALS: BP 114/76
[2017-03-08] MEDS: InsuLIN REG 1unit/0.01ml Soln (100units/ml) SC SCH ×2 (06:37→11:30)
[2017-03-08 08:00] VITALS: BP 125/83
[2017-03-08 09:00] VITALS: BP 125/83
[2017-03-08] MEDS: cefTRIAXone 1GM/50ML D5W 50 ML IV SCH (10:04)
[2017-03-08] MEDS: SODIUM CHLOR 0.9% PF (SALINE LOCK) 10ML VIAL IV SCH (10:05)
[2017-03-08] MEDS: PANTOPRAZOLE 40 MG TAB PO SCH (10:05)
[2017-03-08] MEDS: INSULIN DETEMIR(LEVEMIR) 1unit/0.01ml Soln (100units/ml) SC SCH (10:07)
[2017-03-08 10:24] VITALS: BP 125/83
== END 2017-03-08 13:35 | disposition home or self-care (01) | DRG 871 ==
LOC: ER 08:17 → TELE 08:18 → TELE-E-ADS 15:13 → TELE-CENTR 17:32 → CENTRAL 02-27 18:01
PROVIDERS: ADMIT Internal Medicine; ATTEND Internal Medicine
PROC: 02H633Z Insertion of Infusion Device into Right Atrium, Percutaneous Approach (ICD-10-PCS; principal; 2017-02-28)
DX: A41.9 Sepsis, unspecified organism (principal); K85.90 Acute pancreatitis without necrosis or infection, unspecified; E87.1 Hypo-osmolality and hyponatremia; E11.9 Type 2 diabetes mellitus without complications; E66.9 Obesity, unspecified; E87.5 Hyperkalemia; K76.0 Fatty (change of) liver, not elsewhere classified; R16.0 Hepatomegaly, not elsewhere classified; K42.9 Umbilical hernia without obstruction or gangrene; E83.110 Hereditary hemochromatosis; E86.0 Dehydration; E83.51 Hypocalcemia; I10 Essential (primary) hypertension; Z83.3 Family history of diabetes mellitus; Z82.49 Family history of ischemic heart disease and other diseases of the circulatory system; Z68.34 Body mass index [BMI] 34.0-34.9, adult; Z14.8 Genetic carrier of other disease; Z79.84 Long term (current) use of oral hypoglycemic drugs
CPT/HCPCS: 36415; 36569; 71010; 71020; 74177; 76705; 80048; 80053; 80061; 81001; 82040; 82150; 82728; 82962; 83036; 83605; 83690; 83735; 84100; 84478; 84484; 85007; 85025; 85027; 87040; 93005; 94761; 96361; 96374; 96375; 96376; 97110; 97116; 97530; C9113; J0696; J1815; J1885; J1956; J2001; J2405; J2543; J3480; J3490